=== PATIENT | male | born 1995 | race Caucasian/White ===

== ENCOUNTER → 2021-09-12 09:48 | Outpatient (CLI) | payer OTHER, SELFPAY ==
[2021-09-12 12:36] LABS: Cholesterol 167 mg/dL (140-199); Glucose 103 mg/dL (70-100); HDL Cholesterol 48 mg/dL (40-60); LDL Cholesterol Calculated 101 mg/dL (<100); Triglycerides 91 mg/dL (35-150)
[2021-09-12 18:08] LABS: HIV 1 & 2 Ab/Ag 4th Gen Combo NEGATIVE (NEGATIVE); Hep C Virus Ab w/Reflex Quant NEGATIVE s/c (NEGATIVE)
== END ==
PROVIDERS: Family Provider Podiatrist Foot & Ankle Surgery; PCP Internal Medicine; Referring Provider Internal Medicine; Visit Provider Internal Medicine
DX: Z00.00 Encounter for general adult medical examination without abnormal findings (principal); Z20.9 Contact with and (suspected) exposure to unspecified communicable disease
CPT/HCPCS: 36415; 80061; 82947; 86803; 87389

== ENCOUNTER 2023-08-21 17:04 | Emergency (ER) | payer OTHER, SELFPAY ==
[2023-08-21] VITALS (13 sets, daily range): BP systolic 123–143; BP diastolic 72–101; PULSE 73–83; RESP 14–18; TEMP 36.1; O2SAT 96–100; BMI 35.9
[2023-08-21 17:28] LABS: Add Manual Diff / Slide Review NO; Basophils Absolute Auto 0 /uL (0-100); Basophils Percent Auto 0.2 % (0-2); Eosinophils Absolute Auto 100 /uL (0-450); Eosinophils Percent Auto 0.9 % (2-4); Hematocrit 48.1 % (41-53); Hemoglobin 16.5 g/dL (13.5-17.5); Lymphocytes Absolute Auto 2100 /uL (1100-4500); Lymphocytes Percent Auto 29.4 % (25-40); Mean Corpuscular HGB Conc 34.3 % (30-36); Mean Corpuscular Volume 87.4 fL (80-100); Monocytes Absolute Auto 300 /uL (0-900); Monocytes Percent Auto 4.7 % (3-14); Neutrophils Absolute Auto 4600 /uL (1500-7000); Neutrophils Percent Auto 64.8 % (50-75); Platelet Count 178 X10^3/uL (150-400); Red Blood Cell Count 5.51 X10^6/uL (4.5-5.9); Red Cell Distribution Width 13.5 % (11.6-14.8); White Blood Cell Count 7.1 X10^3/uL (4.5-11.0)
[2023-08-21 17:40] LABS: Alanine Aminotransferase 32 IU/L (<50); Albumin 4.5 g/dL (3.5-5.0); Albumin Globulin Ratio 1.4 (1.0-2.8); Alkaline Phosphatase 80 U/L (38-126); Aspartate Aminotransferase 28 IU/L (17-59); Bilirubin Total 0.6 mg/dL (0.2-1.3); Blood Urea Nitrogen 12 mg/dL (9-20); Calcium 9.5 mg/dL (8.4-10.2); Carbon Dioxide 27 mmol/L (22-32); Chloride 106 mmol/L (98-107); Estimated Glomerular Filt Rate > 60 mL/min (>60); Globulin 3.2 g/dL (1.7-4.1); Glucose 87 mg/dL (70-100); HEMOLYSIS 19 (0-50); Lipase 56 U/L (23-300); Potassium 3.9 mmol/L (3.4-5.1); Sodium 140 mmol/L (137-145); Total Protein 7.7 g/dL (6.3-8.2)
--- NOTE | 2023-08-21 22:16 | ED.GENADULT ---
HPI - General Adult General Chief complaint: Abdominal Pain Stated complaint: lower rt abd pain Time Seen by Provider: 08/21/23 18:27 Source: patient Mode of arrival: Ambulatory History of Present Illness HPI narrative: 28-year-old gentleman with no significant history presents with 2 days of right lower quadrant pendant Ms. That does not seem to allison with movement, position, eating, fasting, bowel movements or voiding. He has not having a fever. He is concerned that it is not improving in any way. He does not describe back pain or dysuria. He notes that he has had diarrhea concurrent with the symptoms. He describes no chest pain palpitations or dyspnea Related Data Allergies Allergy/AdvReac Type Severity Reaction Status Date / Time Sulfa (Sulfonamide Allergy Verified 08/21/23 17:08 Antibiotics) Review of Systems Review of Systems Narrative: Pertinent positive and negative findings as per HPI Patient History Surgical History Anesthesia Broken leg History of tonsillectomy Social History marital status: unmarried,single details: He works at a [email or web address] locally. education level: high school occupational status: employed Smoking Status: Never smoker alcohol intake: current (1-2 per month) during the past year weight has: remained stable Smoking Status: Never smoker alcohol intake frequency: holidays/special occasions only Substance Use Type: does not use Exam Initial Vital Signs Initial Vital Signs: Vital Signs Temperature 97.0 F L 08/21/23 17:08 Pulse Rate 83 08/21/23 17:08 Respiratory Rate 14 08/21/23 17:08 Blood Pressure 140/100 H 08/21/23 17:08 Pulse Oximetry 99 08/21/23 17:08 Oxygen Delivery Method Room Air 08/21/23 17:08 General: Healthy appearing, in no acute distress. Able to give a complete and coherent history. Well-nourished well-developed HEENT: Moist mucous membranes, normal sclera with reactive pupils, Respiratory: Lungs are clear to auscultation, no wheezing no rales no rhonchi. Full and symmetrical air movement Cardiac: Regular rate and rhythm no murmurs no bruits Abdomen: Soft, minor tenderness in the right lower quadrant with left lower quadrant palpation causing right lower quadrant tenderness. No flank pain, no inguinal pain and no testicular tenderness Skin: Warm and dry, no rashes Neurologic: Grossly neurologically intact with no obvious asymmetries or abnormalities Extremities: No trauma, well perfused Psych: Cooperative, appropriate insight and affect Course Orders Ordered: ED Orders 08/21/23 17:11 EKG-12 Lead Stat 08/21/23 17:15 Complete Blood Count AUTO DIFF Stat Comprehensive Metabolic Panel Stat Lipase Stat 08/21/23 22:23 CT abdomen pelvis w con Stat Vital Signs Vital signs: Vital Signs - 8 hr 08/21/23 17:08 08/21/23 18:56 08/21/23 19:00 Temperature 97.0 F L Pulse Rate 83 79 77 Respiratory Rate 14 18 Blood Pressure 140/100 H Pulse Oximetry 99 99 100 Oxygen Delivery Method Room Air 08/21/23 19:30 08/21/23 20:00 08/21/23 20:30 Temperature Pulse Rate 79 80 78 Respiratory Rate Blood Pressure Pulse Oximetry 100 97 98 Oxygen Delivery Method 08/21/23 21:00 08/21/23 21:12 08/21/23 21:12 Temperature Pulse Rate 76 75 Respiratory Rate 18 Blood Pressure 123/72 Pulse Oximetry 96 97 Oxygen Delivery Method 08/21/23 21:30 08/21/23 22:00 08/21/23 22:25 Temperature Pulse Rate 73 82 Respiratory Rate Blood Pressure 143/101 H Pulse Oximetry 96 97 Oxygen Delivery Method 08/21/23 22:25 Temperature Pulse Rate 73 Respiratory Rate Blood Pressure Pulse Oximetry 98 Oxygen Delivery Method Room Air Medical Decision Making Lab Data 08/21/23 17:15 08/21/23 17:15 Labs: Lab Results 08/21/23 Range/Units 17:15 WBC 7.1 (4.5-11.0) X10^3/uL RBC 5.51 (4.5-5.9) X10^6/uL Hgb 16.5 (13.5-17.5) g/dL Hct 48.1 (41-53) % MCV 87.4 (80-100) fL MCH 30.0 (26-34) PG MCHC 34.3 (30-36) % RDW 13.5 (11.6-14.8) % Plt Count 178 (150-400) X10^3/uL Neut % (Auto) 64.8 (50-75) % Lymph % (Auto) 29.4 (25-40) % [place] % (Auto) 4.7 (3-14) % Eos % (Auto) 0.9 L (2-4) % Baso % (Auto) 0.2 (0-2) % Neut # (Auto) 4600 (1049-9119) /uL Lymph # (Auto) 2100 (0358-5440) /uL [place] # (Auto) 300 (0-900) /uL Eos # (Auto) 100 (0-450) /uL Baso # (Auto) 0 (0-100) /uL Sodium 140 (137-145) mmol/L Potassium 3.9 (3.4-5.1) mmol/L Chloride 106 (98-107) mmol/L Carbon Dioxide 27 (22-32) mmol/L BUN 12 (9-20) mg/dL Creatinine 1.09 (0.66-1.25) mg/dL Estimated GFR > 60 (>60) mL/min BUN/Creatinine Ratio 11.0 (6-22) Glucose 87 (70-100) mg/dL Calcium 9.5 (8.4-10.2) mg/dL Total Bilirubin 0.6 (0.2-1.3) mg/dL AST 28 (17-59) IU/L ALT 32 (<50) IU/L Alkaline Phosphatase 80 (38-126) U/L Total Protein 7.7 (6.3-8.2) g/dL Albumin 4.5 (3.5-5.0) g/dL Globulin 3.2 (1.7-4.1) g/dL Albumin/Globulin Ratio 1.4 (1.0-2.8) Lipase 56 (23-300) U/L Urine Dip Bedside Urine Glucose Negative Bedside Urine Bilirubin - Negative Bedside Urine Ketone - Negative Urine Specific [place] 1.030 Bedside Urine Occult Blood - Negative Bedside Urine pH 6.0 Bedside Urine Protein - Negative Bedside Urine Urobilinogen - Negative Bedside Urine Nitrite - Negative Bedside Urine Leukocytes - Negative Esterase Point of care testing: Urine Dip Bedside Urine Glucose Negative Bedside Urine Bilirubin - Negative Bedside Urine Ketone - Negative Urine Specific [place] 1.030 Bedside Urine Occult Blood - Negative Bedside Urine pH 6.0 Bedside Urine Protein - Negative Bedside Urine Urobilinogen - Negative Bedside Urine Nitrite - Negative Bedside Urine Leukocytes - Negative Esterase Imaging Data CT scan - abdomen/pelvis: Radiologist's Impression: PROCEDURE: CT ABDOMEN PELVIS W CON INDICATIONS: RLQ pain TECHNIQUE: After the administration of intravenous contrast, axial sections acquired from the lung bases to the pubic symphysis. Coronal and sagittal reformats were performed. For radiation dose reduction, the following was used: automated exposure control, adjustment of mA and/or kV according to patient size. COMPARISON: None. FINDINGS: Image quality: Diagnostic. Lower Chest: No significant findings. ABDOMEN: Liver: No solid mass. Hepatic steatosis is seen. 5 mm hypodensity involving right hepatic dome. Gallbladder: No radiopaque gallstones or wall thickening. Biliary ducts: No biliary dilation. Pancreas: No ductal dilation. Spleen: Mild splenomegaly, no discrete splenic lesion. Adrenal Glands: No adrenal nodules. Kidneys and Ureters: No hydronephrosis. No solid mass. No complex renal cystic lesion which requires follow up. Stomach and Bowel: Appendix is visualized in right lower quadrant and is within normal limits. There is no bowel obstruction or abnormal bowel wall thickening. No mesenteric fat stranding. No abscess collection. Peritoneum: No abnormal intraperitoneal fluid. No free air. Ventral Wall: No significant ventral hernia. Abdominal Nodes: No retroperitoneal or mesenteric adenopathy by size criteria. Vessels: Aorta and inferior vena cava are normal in size. PELVIS: Pelvic Organs: Unremarkable. Bladder: No bladder wall thickening, accounting for underdistention. Pelvic Nodes: No enlarged lymph nodes. Miscellaneous: No inguinal hernias are seen. Bones: No aggressive osseous abnormality. IMPRESSION: 1. Normal appendix. No bowel obstruction or abnormal bowel wall thickening. No free fluid or free air. 2. Hepatic steatosis. Possible cyst in right hepatic dome too small to characterize. 3. Mild splenomegaly. Dictated by: Francis Jiménez M.D. on 08/21/2023 at 22:59 MDM Narrative Medical decision making narrative: CC: Right lower quadrant tenderness for 2 days, unchanging Data collected from: patient, partner Differential considered: Viral syndrome, appendicitis, constipation, diverticulitis, kidney stone, pyelonephritis Exam documented above, pertinent findings include: Healthy appearing young man tender in the right lower quadrant and palpation in the left lower quadrant exacerbates the right lower quadrant pain Lab Test results independently reviewed as above. Pertinent findings: CBC shows no significant findings without significant leukocytosis Chemistries are unremarkable with normal renal function and liver studies Imaging studies independently reviewed: CT scan does not show appendicitis, obstruction or other specific pathology to explain the right lower quadrant tenderness. Discussion: 28-year-old gentleman 48 hours of consistent right lower quadrant tenderness with no life-threatening abnormality identified. There is no evidence of intra-abdominal abscess, mass or obstruction. He does not have appendicitis, pyelonephritis, kidney stone. No obvious skin changes to be concern for shingles. He does not have point tenderness along the lumbar spine or paraspinous area corresponding with the right lower quadrant. No inguinal hernias or testicular abnormalities are appreciated. At this point the most likely explanation remains musculoskeletal. Findings reviewed with him. Questions are answered and he is safe for discharge Discharge Plan Departure Patient Disposition: Home Clinical Impression: Abdominal pain Qualifiers: Abdominal location: right lower quadrant Qualified Code(s): R10.31 - Right lower quadrant pain Instructions: DI for Abdominal Muscle Strain Activity Restrictions/Additional Instructions: Thank you for coming in today Workup was quite reassuring. There is no evidence of infection, acute blood loss, appendicitis, kidney infection, kidney stone, bowel obstruction, colitis, severe constipation. Often times I am able to tell you all the things that you do not have and reassure you that this is not a life-threatening or surgical requiring issue. Sometimes I am not able to actually tell you what the source of the pain is. A this point, I suspect that your pain is musculoskeletal in nature and will improve. If it worsens or changes then it will suggest additional direction to continue workup and would be appropriate to return to the ER Using 400 mg of ibuprofen (2 [id number] pills) and 1 Tylenol every 6 hours can be very helpful in controlling pain. Referrals: Shona Bucio MD [Primary Care Provider] - Stand Alone Forms: Patient Portal/API
--- NOTE | 2023-08-21 22:23 | DI.CT.S_ITS ---
PROCEDURE: CT ABDOMEN PELVIS W CON INDICATIONS: RLQ pain TECHNIQUE: After the administration of intravenous contrast, axial sections acquired from the lung bases to the pubic symphysis. Coronal and sagittal reformats were performed. For radiation dose reduction, the following was used: automated exposure control, adjustment of mA and/or kV according to patient size. COMPARISON: None. FINDINGS: Image quality: Diagnostic. Lower Chest: No significant findings. ABDOMEN: Liver: No solid mass. Hepatic steatosis is seen. 5 mm hypodensity involving right hepatic dome. Gallbladder: No radiopaque gallstones or wall thickening. Biliary ducts: No biliary dilation. Pancreas: No ductal dilation. Spleen: Mild splenomegaly, no discrete splenic lesion. Adrenal Glands: No adrenal nodules. Kidneys and Ureters: No hydronephrosis. No solid mass. No complex renal cystic lesion which requires follow up. Stomach and Bowel: Appendix is visualized in right lower quadrant and is within normal limits. There is no bowel obstruction or abnormal bowel wall thickening. No mesenteric fat stranding. No abscess collection. Peritoneum: No abnormal intraperitoneal fluid. No free air. Ventral Wall: No significant ventral hernia. Abdominal Nodes: No retroperitoneal or mesenteric adenopathy by size criteria. Vessels: Aorta and inferior vena cava are normal in size. PELVIS: Pelvic Organs: Unremarkable. Bladder: No bladder wall thickening, accounting for underdistention. Pelvic Nodes: No enlarged lymph nodes. Miscellaneous: No inguinal hernias are seen. Bones: No aggressive osseous abnormality. IMPRESSION: 1. Normal appendix. No bowel obstruction or abnormal bowel wall thickening. No free fluid or free air. 2. Hepatic steatosis. Possible cyst in right hepatic dome too small to characterize. 3. Mild splenomegaly. Dictated by: Francis Jiménez M.D. on 08/21/2023 at 22:59 Approved by: Francis Jiménez M.D. on 08/21/2023 at 23:01
== END 2023-08-21 23:34 | disposition home or self-care (01) ==
PROVIDERS: Emergency Medicine; Emergency Provider Emergency Medicine; Family Provider Podiatrist Foot & Ankle Surgery; PCP Family Medicine
DX: R10.31 Right lower quadrant pain (principal)
CPT/HCPCS: 36415; 74177; 80053; 81003; 83690; 85025; 99283; 99284; Q9967

== ENCOUNTER → 2023-09-03 12:10 | Outpatient (CLI) | payer OTHER, SELFPAY ==
--- NOTE | 2023-09-03 12:12 | DI.RAD.S_ITS ---
PROCEDURE: XR SHOULDER LT MIN 2V INDICATIONS: left shoulder/pectoralis pain TECHNIQUE: 3 views of the shoulder were acquired. COMPARISON: None. FINDINGS: Bones: No fractures or dislocations. No suspicious bony lesions. Visualized ribs appear intact. Soft tissues: No suspicious soft tissue calcifications. IMPRESSION: No visualized acute fracture or dislocation. However, if clinical concern and/or pain persist, short interval imaging followup in 7-10 days is recommended, as occult injury cannot be definitively excluded. Dictated by: Patricia Brooks M.D. on 09/03/2023 at 16:50 Approved by: Patricia Brooks M.D. on 09/03/2023 at 16:50
== END ==
PROVIDERS: Family Provider Podiatrist Foot & Ankle Surgery; PCP Family Medicine; Referring Provider Family Medicine; Visit Provider Family Medicine
DX: S29.011A Strain of muscle and tendon of front wall of thorax, initial encounter (principal); X58.XXXA Exposure to other specified factors, initial encounter
CPT/HCPCS: 73030

== ENCOUNTER → 2024-08-18 13:19 | Outpatient (CLI) | payer BC, SELFPAY ==
[2024-08-18 14:07] LABS: COVID-19 CEPHEID 4-PLEX PCR Negative (Negative); Influenza A - CEPHEID Flu A NEGATIVE (NEGATIVE); Influenza B - CEPHEID Flu B NEGATIVE (NEGATIVE); Respiratory Syncytial Virus Negative (Negative)
== END ==
PROVIDERS: Family Provider Podiatrist Foot & Ankle Surgery; PCP Family Medicine; Visit Provider Nurse Practitioner Family
DX: J02.9 Acute pharyngitis, unspecified (principal)
CPT/HCPCS: 0241U; 87070

== ENCOUNTER 2025-02-27 12:49 | Emergency (ER) | payer BC, OTHER, SELFPAY ==
[2025-02-27 12:54] VITALS: TEMP 36.7; BMI 36.9
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
[2025-02-27 15:12] VITALS: BP 142/81; PULSE 89; RESP 16; O2SAT 96
== END 2025-02-27 15:13 | disposition home or self-care (01) ==
PROVIDERS: Emergency Provider Student in an Organized Health Care Education/Training Program; Family Provider Podiatrist Foot & Ankle Surgery; PCP Family Medicine
DX: S46.912A Strain of unspecified muscle, fascia and tendon at shoulder and upper arm level, left arm, initial encounter (principal); S93.602A Unspecified sprain of left foot, initial encounter; S93.601A Unspecified sprain of right foot, initial encounter; M62.830 Muscle spasm of back; V89.2XXA Person injured in unspecified motor-vehicle accident, traffic, initial encounter
CPT/HCPCS: 72100; 73030; 73630; 99283; 99284